=== PATIENT | female | born 1965 | race Caucasian/White ===

== ENCOUNTER → 2017-01-19 | Outpatient (CLI) | payer OTHER | END | disposition home or self-care (01) | LOC: C.PAPS 15:58 | PROVIDERS: ATTEND Physician Assistant | DX: Z12.4 Encounter for screening for malignant neoplasm of cervix (principal); R87.616 Satisfactory cervical smear but lacking transformation zone ==

== ENCOUNTER → 2017-01-20 | Outpatient (CLI) | payer OTHER ==
[2017-01-20 10:39] LABS: BLOOD UREA NITROGEN 14 mg/dl (7-18); BUN/CREATININE RATIO 10.6 (10-20); CALCIUM 9.5 mg/dl (8.5-10.1); CARBON DIOXIDE 19 mmol/L (21-32); CHLORIDE 106 mmol/L (98-107); GLUCOSE 94 mg/dl (70-99); POTASSIUM 3.8 mmol/L (3.5-5.1); SODIUM 142 mmol/L (136-145)
[2017-01-20 10:49] LABS: CHOLESTEROL 223 mg/dl (0-200); CHOLESTEROL/HDL RATIO 2.4; HDL CHOLESTEROL 93 mg/dl; LDL CHOLESTEROL CALCULATED 114 mg/dl; TRIGLYCERIDES 78 mg/dl (0-150); VERY LOW DENSITY LIPOPROT CALC 16 mg/dl
== END | disposition home or self-care (01) ==
LOC: C.LAB1850 07:11
PROVIDERS: ATTEND Nurse Practitioner Adult Health
DX: F41.9 Anxiety disorder, unspecified (principal); E03.9 Hypothyroidism, unspecified; Z82.3 Family history of stroke

== ENCOUNTER → 2017-02-01 | Outpatient (CLI) | payer OTHER ==
[2017-02-01 17:01] LABS: CREATININE 0.82 mg/dl (0.60-1.20)
== END | disposition home or self-care (01) ==
LOC: C.LAB1850 15:39
PROVIDERS: ATTEND Nurse Practitioner Adult Health
DX: R79.89 Other specified abnormal findings of blood chemistry (principal)

== ENCOUNTER → 2017-04-04 | Outpatient (CLI) | payer OTHER ==
--- NOTE | 2017-04-06 12:34 | MAMMOGRAPHY REPORT ---
BILATERAL DIGITAL SCREENING MAMMOGRAM TOMOSYNTHESIS WITH CAD: 04/04/2017 CLINICAL HISTORY: Routine screening. Patient has no complaints. TECHNIQUE: Breast tomosynthesis in addition to standard 2D mammography was performed. Current study was also evaluated with a Computer Aided Detection (CAD) system. COMPARISON: No prior exams were available for comparison. BREAST COMPOSITION: The tissue of both breasts is extremely dense, which lowers the sensitivity of m ammography. FINDINGS: No suspicious mass, architectural distortion or cluster of microcalcifications is seen. IMPRESSION: ACR BI-RADS CATEGORY 1: NEGATIVE There is no mammographic evidence of malignancy. Prior outside mammograms are currently being reques fabián and if obtained they will be reviewed, compared to the current exam to assess for any more subtle changes, and an addendum will be made to this report. Otherwise, a 1 year screening mammogram is re commended. The patient will receive written notification of the results. Approximately 10% of breast cancers are not detected with mammography. A negative mammographic report should not delay biopsy if a clinically suggestive mass is present. Jeri Schulz M.D. ay/:04/04/2017 16:45:03 Sample Book Maker: Amberly LIPSCOMB(Ghulam)(Roger), [facility] letter sent: Normal 1/2 BI-RADS Code: ACR BI-RADS Category 1: Negative
== END | disposition home or self-care (01) ==
LOC: C.MAMM 14:49
PROVIDERS: ATTEND Nurse Practitioner Adult Health
DX: Z12.31 Encounter for screening mammogram for malignant neoplasm of breast (principal)

== ENCOUNTER → 2017-10-31 | Outpatient (CLI) | payer OTHER ==
--- NOTE | 2017-10-31 16:37 | DIAGNOSTIC IMAGING REPORT ---
RIGHT FOREFOOT MRI HISTORY: Right FOOT PAIN TECHNIQUE: Multiplanar multisequence MR the right forefoot was performed without contrast. COMPARISON STUDY: None. FINDINGS: There is soft tissue edema along the plantar surface of the distal toe at the level the distal phalanx. Mild cartilage space narrowing and subchondral edema at the head of the first metatarsal consistent with mild degenerative change. Tiny subchondral cystic focus at the base of the distal phalanx also likely representing mild degenerative change. No fracture or dislocation. The Lisfranc joint is aligned. No erosions identified. Incidental is made of a bipartite medial sesamoid bone at the head of the first metatarsal. There may be minimal edema within the medial sesamoid bone. The visualized flexor and extensor tendons appear intact. IMPRESSION: 1. Nonspecific soft tissue edema along the plantar aspect of the distal first toe. No underlying bony abnormality. 2. Mild degenerative changes at the first MTP joint and interphalangeal joint of the first toe. 3. Bipartite medial sesamoid bone at the head of the first metatarsal which demonstrates mild marrow edema. This suggests a mild sesamoiditis. 4. No fracture or dislocation within the forefoot. Electronically signed by: Art Greene M.D. 10/31/2017 4:36 PM Dictated Date/Time: 10/31/2017 4:30 PM
== END | disposition home or self-care (01) ==
LOC: C.MRIBC 14:55
PROVIDERS: ATTEND Podiatrist Foot & Ankle Surgery
DX: M89.8X1 Other specified disorders of bone, shoulder (principal); L97.512 Non-pressure chronic ulcer of other part of right foot with fat layer exposed

== ENCOUNTER → 2017-12-12 | Outpatient (CLI) | payer OTHER ==
[2017-12-12 13:09] LABS: BASO % 1.5 %; BASO ABS # 0.08 K/uL (0-0.2); EOS % 1.5 %; EOS ABS # 0.08 K/uL (0-0.5); HEMATOCRIT 39.5 % (37-47); HEMOGLOBIN 13.1 g/dL (12.0-16.0); IG# 0.01 K/uL (0.00-0.02); LYMPH % 25.9 %; LYMPH ABS # 1.37 K/uL (1.2-3.4); MEAN CELL VOLUME 88.8 fL (80-100); MEAN CORPUSCULAR HEMOGLOBIN 29.4 pg (25-34); MEAN CORPUSCULAR HGB CONC 33.2 g/dl (32-36); MEAN PLATELET VOLUME 9.9 fL (7.4-10.4); MONO % 7.6 %; NEUT % 63.3 %; NEUT ABS # 3.34 K/uL (1.4-6.5); PLATELET COUNT 257 K/uL (130-400); RED CELL DISTRIBUTION WIDTH CV 14.1 % (11.5-14.5); RED CELL DISTRIBUTION WIDTH SD 46.1 fL (36.4-46.3); WHITE BLOOD COUNT 5.28 K/uL (4.8-10.8)
== END | disposition home or self-care (01) ==
LOC: C.LAB1850 11:43
PROVIDERS: ATTEND Orthopaedic Surgery
DX: M20.21 Hallux rigidus, right foot (principal); Z01.812 Encounter for preprocedural laboratory examination; Z01.818 Encounter for other preprocedural examination

== ENCOUNTER → 2018-02-07 | Outpatient (CLI) | payer OTHER | END | disposition home or self-care (01) | LOC: C.MAMM 09:02 | PROVIDERS: ATTEND Physician Assistant | DX: M85.80 Other specified disorders of bone density and structure, unspecified site (principal) ==

== ENCOUNTER 2021-03-26 06:11 | Inpatient (IN) ==
--- NOTE | 2021-03-06 14:51 | PAT Medication Instructions ---
Medication Instructions Date of Service March 06, 2021 Home Medications Medication Instructions Recorded sodium,potassium,mag sulfates 17.5 177 ml PO DAILY #354 ml 10/29/19 gram-3.13 gram-1.6 gram oral soln sertraline 100 mg tablet 150 mg PO QAM #135 tabs 01/16/20 levothyroxine 100 mcg tablet 100 mcg PO QAM #90 tab 06/25/20 calcium carb-vit D3-minerals 600 mg calcium-400 unit tablet 1 tab PO QAM sodium,potassium,mag sulfates 17.5 gram-3.13 gram-1.6 gram oral soln 177 ml PO DAILY sertraline 100 mg tablet 150 mg PO QAM levothyroxine 100 mcg tablet 100 mcg PO QAM ibuprofen 200 - 400 mg PO Q6H PRN ASK your surgeon for instructions ibuprofen 200 - 400 mg PO Q6H PRN DO NOT take the morning of surgery calcium carb-vit D3-minerals 600 mg calcium-400 unit tablet 1 tab PO QAM sodium,potassium,mag sulfates 17.5 gram-3.13 gram-1.6 gram oral soln 177 ml PO DAILY Take morning of surgery With a small sip of water, OTHERWISE NOTHING TO EAT OR DRINK AFTER MIDNIGHT: sertraline 100 mg tablet 150 mg PO QAM levothyroxine 100 mcg tablet 100 mcg PO QAM Other Notes If you have any questions please call us at [phone] or [phone] or [phone] or [phone]
--- NOTE | 2021-03-09 14:18 | Anesthesiology Consultation ---
Date of Service March 09, 2021 Assessment & Plan (1) Encounter for pre-operative examination: COVID screening: Per assessment on 03/09: Travel screen negative, no known COVID- 19 positive contacts or current COVID-19 related symptoms. Surgeon arranging preop COVID testing. Awaiting results. Chart Review Chart Review: Acceptable Risk for Surgery and Patient seen in Pre Admission Testing Teaching & Discussion Pre-Anesthesia Teaching/Discussion Notes: Instructed NPO after midnight before surgery,except medications with 15 cc of water. Medication instructions provided according to the PAT guidelines. History Surgery Operation Date: 03/26/21 07:45 Proposed Procedures p C5-C7 Anterior Cervical Discectomy Fusion Spinal Cord Monitoring - Gamal Chawla DO Height/Weight Height: 5 ft 5.5 in Weight: 57.5 kg Allergies Allergy/AdvReac Type Severity Reaction Status Date / Time No Known Allergies Allergy Verified 03/04/21 08:24 Medications Home Medications Medication Instructions Recorded Confirmed Last Taken calcium carb-vit D3-minerals 600 1 tab PO QAM tab 04/27/19 03/04/21 11/14/19 mg calcium-400 unit tablet sodium,potassium,mag sulfates 17.5 177 ml PO DAILY #354 ml 10/29/19 03/04/21 11/15/19 gram-3.13 gram-1.6 gram oral soln sertraline 100 mg tablet 150 mg PO QAM #135 tabs 01/16/20 03/04/21 Unknown levothyroxine 100 mcg tablet 100 mcg PO QAM #90 tab 06/25/20 03/04/21 Unknown ibuprofen 200 - 400 mg PO Q6H PRN 03/04/21 03/04/21 Unknown Past Medical History Medical History Anxiety Hypothyroidism (acquired) Insomnia Exercise / Class Metabolic Activity II 4-5 Yardwork/Stairs/Walk up hill Past Family History Family History Mother Coronary heart disease Emphysema lung Stroke Father Emphysema lung Sister Neoplasm of cervix Family history of reaction to anesthesia PONV Brother Family history of reaction to anesthesia PONV/SLOW TO WAKE UP Past Surgical History Surgical History delivery delivered X 2 History of colonoscopy History of toe surgery RIGHT S/P hernia repair S/P tubal ligation Past Anesthesia History No Hx of Anesthesia Complications Brother: PONV/"slow to wake" Sister: PONV History of PONV No Hx of PONV STOP BANG Total 1 Social History Smoking Status: Never smoker Do You Dip or Chew Tobacco: No Hx Alcohol Use: Yes Alcohol type: hard liquor alcohol intake frequency: a few times a week Hx Substance Use: No Review of Systems No snoring. Patient denies chest pain, shortness of breath, dyspnea on exertion, fever, chills, cough, wheezing, palpitations. Physical Exam Vital Signs VITALS BP 148/77 P 60 TEMP 98.8 SP02 98%RA RESP 16 PHYSICAL Full cervical extension range of motion but significant pain with extension. Full TMJ range of motion. TMD 3 finger breaths Mallampati Score 2 Dentition: intact, + crown Lungs: clear throughout to auscultation Cardiac: regular rate and rhythm, no murmurs noted Spine: normal Carotid arteries: negative bruit Extremities: no edema Lab Results Anesthesia Preop Results Results Anesthesia Widget: WBC 5.10 K/uL (4.8-10.8) 03/09/21 Hgb 13.3 g/dL (12.0-16.0) 03/09/21 Hct 39.1 % (37-47) 03/09/21 Plt 211 K/uL (130-400) 03/09/21 Na 139 mmol/L (136-145) 03/09/21 K 3.6 mmol/L (3.5-5.1) 03/09/21 Cl 106 mmol/L (98-107) 03/09/21 CO2 27 mmol/L (21-32) 03/09/21 BUN 18 mg/dl (7-18) 03/09/21 Creat 0.68 mg/dl (0.6-1.2) 03/09/21 Glucose Level 78 mg/dl (70-99) 03/09/21 PT 9.9 Seconds (9.0-12.0) 03/09/21 PTT 23.8 Seconds (21.0-31.0) 03/09/21 INR 1.0 (0.9-1.1) 03/09/21 Urine Color Yellow 03/09/21 Urine Appearance Clear (Clear) 03/09/21 Urine pH 7.0 (4.5-7.5) 03/09/21 Urine Specific [place] 1.009 (1.000-1.030) 03/09/21 Urine Protein Negative (Negative) 03/09/21 Urine Glucose (UA) Negative (Negative) 03/09/21 Urine Ketones Negative (Negative) 03/09/21 Urine Blood Negative (Negative) 03/09/21 Urine Nitrite Negative (Negative) 03/09/21 Urine Bilirubin Negative (Negative) 03/09/21 Urine Urobilinogen Negative (Negative) 03/09/21 Urine Leukocyte Esterase Negative (Negative) 03/09/21 Blood Type B Negative 03/09/21 Antibody Screen NEGATIVE 03/09/21 Testing Electrocardiogram Date: 03/09/21 Sinus bradycardia at 54 bpm. Minimal voltage criteria for LVH, may be normal variant. Chest X-Ray Date: 03/09/21 Findings: + NAD
[~2021-03-26 06:11] MED LIST: ACETAMINOPHEN 500 MG TAB PO SCH; CeleBREX 200 MG CAP PO SCH; GABAPENTIN 600 MG DOSE PO SCH; LR 15ML/HR IV SCH; ceFAZolin 1000MG 1,000 MG/7.5 ML SYR IV SCH
[2021-03-26] MEDS ORDERED: fentaNYL citrate 100 MCG/2 ML VIAL ONE (07:02)
[2021-03-26] MEDS ORDERED: MIDAZOLAM HCL 1 MG/ML 2ML VIAL ONE (07:02)
[2021-03-26] MEDS ORDERED: REMIFENTANIL HCL 1 MG VIAL ONE ×2 (07:05→08:20)
--- NOTE | 2021-03-26 07:27 | History & Physical Bridge Note ---
Date of Service March 26, 2021 History & Physical Bridge Note I have examined the patient, reviewed the History & Physical and in the interval since the performance of the History & Physical I have noted the following changes of clinical significance: no changes noted
--- NOTE | 2021-03-26 07:28 | History & Physical Report ---
Date of Service March 26, 2021 Assessment & Plan (1) Cervical stenosis of spinal canal: Admission and Anticipated Discharge Date Admission Date: C5-C7 anterior cervical discectomy and fusion History of Present Illness Chief Complaint: Neck and arm pain Primary Care Provider: Barb Moreno PA-C This is a 55-year-old female presents with chronic persistent neck and arm pain. After failing course of nonoperative care she is here for surgical intervention. Allergies Allergy/AdvReac Type Severity Reaction Status Date / Time No Known Allergies Allergy Verified 03/26/21 06:34 Home Medications Medication Instructions Recorded Confirmed Type calcium carb-vit D3-minerals 600 1 tab PO QAM tab 04/27/19 03/26/21 History mg calcium-400 unit tablet sodium,potassium,mag sulfates 17.5 177 ml PO DAILY #354 ml 10/29/19 03/26/21 Rx gram-3.13 gram-1.6 gram oral soln sertraline 100 mg tablet 150 mg PO QAM #135 tabs 01/16/20 03/26/21 Rx levothyroxine 100 mcg tablet 100 mcg PO QAM #90 tab 06/25/20 03/26/21 Rx ibuprofen 200 - 400 mg PO Q6H PRN 03/04/21 03/26/21 History Past Med/Surg History Medical History Anxiety Hypothyroidism (acquired) Insomnia Surgical History delivery delivered X 2 History of colonoscopy History of toe surgery RIGHT S/P hernia repair S/P tubal ligation Family History Mother Coronary heart disease Emphysema lung Stroke Father Emphysema lung Sister Neoplasm of cervix Family history of reaction to anesthesia PONV Brother Family history of reaction to anesthesia PONV/SLOW TO WAKE UP Social History (Updated 03/04/21 @ 08:46 by Hayde Lebron RN) Smoking Status: Never smoker Second Hand Exposure: Yes (PARENTS SMOKED); Do You Dip or Chew Tobacco: No; Hx Alcohol Use: Yes Alcohol type: hard liquor Hx Substance Use: No Preferred Language: Faroese Communication Ability: Effective Visual Impairment: No Limitations Hearing Ability: Normal Director Payment Required: No Beliefs That Will Affect Care: None marital status: Current Living Situation: Spouse and Family Current Living Situation Comment: spouse and 3 children current occupational status: employed current occupation: [employer] Other Information That Helps Us Care for You: No Feels Safe at Home: Yes Safety Concerns: Feels Safe At This Time Childhood Exposure to Second-Hand Smoke: No Dental Care, Regularly: Yes Physical Activity Frequency: 5-6 Times per Week Seatbelt Use: always Assistive Devices: Glasses Physical Exam Physical Exam: Patient is alert and oriented Heart regular in rhythm Lungs clear to auscultation Results & Data ([facility]) Vital Signs (Past 12 Hours) Vital Signs Temp Pulse Resp BP Pulse Ox 03/26/21 06:55 36.8 C 56 L 18 151/73 H 100
[2021-03-26] MEDS ORDERED: ePHEDrine sulfate 50 MG/ML AMP IV PRN (07:46)
[2021-03-26] MEDS ORDERED: ATROPINE SULFATE 0.1 MG/ML 10ML SYR IV PRN (07:46)
[2021-03-26] MEDS ORDERED: fentaNYL citrate 100 MCG/2 ML VIAL IV PRN (07:46)
[2021-03-26] MEDS ORDERED: ONDANSETRON INJ 2 MG/ML 2 ML VIAL IV PRN ×2 (07:46→11:04)
[2021-03-26] MEDS ORDERED: HYDROmorphone INJ 2 MG/ML SYR/VIAL IV PRN (07:46)
[2021-03-26] MEDS ORDERED: KETAMINE 50 MG/5 ML SYRINGE ONE (08:08)
[2021-03-26] MEDS ORDERED: FLOSEAL HEMOSTATIC MATRIX 10ML TOP ONE (08:54)
--- NOTE | 2021-03-26 09:09 | Operative Report ---
Post Operative Report Pre & Post Diagnosis Operation Date: 03/26/21 07:45 Pre-Op Diagnosis: Cervical spinal stenosis with radiculopathy Post-Op Diagnosis: Same I identified the patient and participated in the time-out.: Yes Procedure Operation Date: 03/26/21 07:45 Actual Procedures #1 anterior cervical discectomy with bilateral foraminotomies C5-C6 C6-C7. #2 anterior cervical arthrodesis C5-C6 C6-C7. #3 placement of 7 mm Spira filled with I factor at C5-C6 and 8 mm at C6-C7. #4 application 5 complete screws from C5-C7. Surgeon Gamal Chawla, Regulatory Affairs Analyst Eusebia Brasher Estimated Blood Loss 10 Findings Consistent with Post-Op Diagnosis Specimens None Indications This is a 55-year-old female who presents with above-mentioned diagnosis after failing since course of nonoperative care she is here for surgical invention. Description of Procedure Patient was met with identified informed consent obtained. Patient was then taken to the operative suite underwent a patient placed in supine position injectable head Garcia head automatic sawyer. All bony prominences well-padded eyes inspected to ensure no external pressure placed upon the. This point the anterior cervical spine was prepped and draped in a sterile fashion. The assistance of fluoroscopy verified the C6 vertebral body and a transverse incision was placed along the right anterior aspect of the cervical spinal lines region. Sharp dissection with the assistance of bipolar cautery performed down to and exposing the anterior cervical spine from C5 to see 7. Self-retaining retractors placed. Complete discectomy of C5-C6 was then performed out to the uncovertebral's bilaterally. Deputy distracting pins were utilized. Removed all posterior annular fibers longitudinal ligament and bilateral foraminotomies performed. Endplates were then burred to subcortically bone and a 7 mm spiral cage filled I factor tapped in position. Then proceeded C6-C7. Again several 10 retractors placed. A complete discectomy was then performed out to the uncovertebral's bilaterally. Deputy distracting pins again utilized. I removed all posterior annular fibers longitudinal ligament bilateral foraminotomies performed for complete decompression. Endplates were then burred to subcortically bone and 8 mm spiral cage filled I factor tapped in position. Distracting apparatus was removed all anterior osteophytes burred to a smooth cortical surface and a 5 complete screws applied with the assistance of fluoroscopy. 15 round ADIA drain inserted. The incision was then closed with 2 Vicryl in a fashion of 4 Monocryl for final skin closure. Steri-Strip sterile dressings placed. Patient waken taken PACU stable condition. Please note spinal cord monitoring visualized at the procedure no changes noted. Lastly Eusebia Brasher was present at the entire surgery involved the patient positioning complex portions of the surgery and fascial closure. I attest to the content of the Intraoperative Record and any orders documented therein. Any exceptions are noted below.
[2021-03-26] MEDS ORDERED: SUCCINYLCHOLINE CHLORIDE 20 MG/ML 10 ML VIAL IV ONE (09:31)
[2021-03-26] MEDS ORDERED: ONDANSETRON INJ 2 MG/ML 2 ML VIAL ONE (09:31)
[2021-03-26] MEDS ORDERED: ePHEDrine sulfate 50 MG/ML SYR ONE (09:31)
[2021-03-26] MEDS ORDERED: DEXAMETHASONE SOD INJ 4 MG/ML VIAL ONE (09:31)
[2021-03-26] MEDS ORDERED: ROCURONIUM BROMIDE 10 MG/ML 5 ML VIAL IV ONE (09:31)
[2021-03-26] MEDS ORDERED: PROPOFOL IV EMULSION 10 MG/ML 20 ML VIAL IV ONE (09:32)
[2021-03-26] MEDS ORDERED: LIDOCAINE 2% 2 ML VIAL/AMP(20MG/ML) INFIL ONE (09:32)
--- NOTE | 2021-03-26 09:54 | Fluoroscopy Report ---
FL cervical 2-3V CLINICAL HISTORY: C5-C7 ACDF COMPARISON STUDY: None FLUOROSCOPY TIME: 7 seconds. NUMBER OF FLUOROSCOPIC IMAGES: 3 FINDINGS: Intraoperative fluoroscopic images are presented for review. Placement of anterior screws, disc spacers and fixating plates within lower cervical region are seen. IMPRESSION: As above ACT 112: Negative or not required by law. The above report was generated using voice recognition software. It may contain grammatical, syntax o r spelling errors. Electronically signed by: Crystal Holland DO 03/26/2021 9:53 AM
--- NOTE | 2021-03-26 09:55 | Anesthesiology Progress Note ---
Date of Service March 26, 2021 Anesthesia Post Procedure Vital Signs Vital Signs: Temp Pulse Pulse Resp BP Pulse Ox 03/26/21 09:45 65 16 107/78 100 03/26/21 09:35 70 14 140/67 100 03/26/21 09:26 36.0 C L 75 17 152/69 H 96 03/26/21 06:55 36.8 C 56 L 18 151/73 H 100 Transfer of Care Handoff Completed per policy Notes Mental Status: alert / awake / arousable and participated in evaluation Patient Amnestic to Procedure: Yes Nausea / Vomiting: adequately controlled Pain: adequately controlled Airway Patency, RR, SpO2: stable & adequate BP & HR: stable & adequate Hydration State: stable & adequate Anesthetic Complications: no major complications apparent and Pt Satisfied with anesthetic care
[2021-03-26] MEDS ORDERED: ACETAMINOPHEN 1,000 MG/100 ML VIAL IV PRN (11:04)
[2021-03-26] MEDS ORDERED: DO NOT ADMINISTER PNEUMOCOCCAL VACCINE PRN (11:04)
[2021-03-26] MEDS ORDERED: diphenhydrAMINE Capsule 25 MG CAP PO PRN (11:04)
[2021-03-26] MEDS ORDERED: hydrOXYzine HCl 25 MG TAB PO PRN (11:04)
[2021-03-26] MEDS ORDERED: HYDROmorphone INJ 1 MG/ML SYRINGE IV PRN (11:04)
[2021-03-26] MEDS ORDERED: METOCLOPRAMIDE HCL INJ 5 MG/ML 2 ML VIAL IV PRN (11:04)
[2021-03-26] MEDS ORDERED: ONDANSETRON 4 MG OD TAB PO PRN (11:04)
[2021-03-26] MEDS ORDERED: ALUMINUM/MAGNESIUM SUSP 30 ML UDC PO PRN (11:04)
[2021-03-26] MEDS ORDERED: DO NOT ADMINISTER FLU VACCINE PRN (11:04)
[2021-03-26] MEDS ORDERED: HYDROmorphone INJ 0.5 MG/0.5 ML SYR IV PRN (11:04)
[2021-03-26] MEDS ORDERED: NALOXONE HCL 0.4 MG/1 ML VIAL/CARP IV PRN (11:04)
[2021-03-26] MEDS ORDERED: FAMOTIDINE 20 MG TAB PO PRN (11:04)
[2021-03-26] MEDS ORDERED: SOD PHOSPHATE/SOD BIPHOSPHATE ENEMA 132 ML BTL PR PRN (11:04)
[2021-03-26] MEDS ORDERED: MAGNESIUM HYDROXIDE SUSP 30 ML UDC PO PRN (11:04)
[2021-03-26] MEDS ORDERED: PROMETHAZINE HCL 12.5 MG in SODIUM CHLORIDE 0.9% 50 ML IV PRN (11:04)
[2021-03-26] MEDS ORDERED: oxyCODONE HCL IR 5 MG TAB (IMMEDIATE RELEASE) PO PRN (11:04)
[2021-03-26] MEDS ORDERED: LORazepam 0.5 MG TAB PO PRN (11:04)
[2021-03-26] MEDS ORDERED: dexAMETHasone 8 MG in SYRINGE 0 ML IV PRN (11:04)
[2021-03-26] MEDS ORDERED: LORazepam 0.5 MG/1 ML VIAL IV PRN (11:04)
[2021-03-26] MEDS ORDERED: RACEPINEPHRINE 2.25% NEBU SOLN 0.5 ML VIAL INH PRN (11:04)
[2021-03-26] MEDS: LACTATED RINGER'S 1,000 ML IV SCH ×2 (13:27→19:15)
[2021-03-26] MEDS ORDERED: COUGH DROP (SUGAR FREE) LOZ 24 LOZ/1 BOX BUCCAL PRN (13:29)
[2021-03-26] MEDS: traMADol HCL 50 MG TABLET PO PRN ×3 (13:38→23:29)
[2021-03-26] MEDS: ceFAZolin 1000MG 1,000 MG/7.5 ML SYR IV SCH ×2 (15:59→23:36)
[2021-03-26] MEDS: ACETAMINOPHEN 500 MG TAB PO PRN (16:02)
[2021-03-26] MEDS ORDERED: DOCUSATE SODIUM/SENNA 50/8.6MG TAB PO SCH (21:00)
[2021-03-27] MEDS ORDERED: POLYETHYLENE (MIRALAX) 17 GM PACK PO SCH (06:00)
[2021-03-27] MEDS ORDERED: LEVOTHYROXINE SODIUM 100 MCG TABLET PO SCH (06:30)
[2021-03-27] MEDS: ACETAMINOPHEN 500 MG TAB PO PRN (07:06)
[2021-03-27] MEDS: traMADol HCL 50 MG TABLET PO PRN (08:07)
[2021-03-27] MEDS ORDERED: SERTRALINE HCL 50 MG TABLET PO SCH (09:00)
[2021-03-27] MEDS ORDERED: CALCIUM 600MG + VIT D 400 IU TAB PO SCH (09:00)
[2021-03-27] MEDS ORDERED: dexAMETHasone 6 MG in SYRINGE 0 ML IV SCH (09:00)
--- NOTE | 2021-03-27 09:56 | Discharge Summary ---
Date of Service March 27, 2021 Admission HPI Per Admitting Provider This is a 55-year-old female presents with chronic persistent neck and arm pain. After failing course of nonoperative care she is here for surgical intervention. Principal Diagnosis Cervical radiculopathy Discharge Data Allergies Allergy/AdvReac Type Severity Reaction Status Date / Time buspirone Allergy Unknown Verified 03/26/21 11:18 escitalopram [From Lexapro] Allergy Unknown Verified 03/26/21 11:18 fluoxetine [From Prozac] Allergy Unknown Verified 03/26/21 11:18 paroxetine [From Paxil] Allergy Unknown Verified 03/26/21 11:18 Procedures Performed Operation Date: 03/26/21 07:45 Actual Procedures p C5-C7 Anterior Cervical Discectomy Fusion, Spinal Cord Monitoring(Not Applicable) - Gamal Chawla DO Ordered Studies 03/26/21 07:00 FL cervical 2-3V Routine Hospital Course (1) Cervical stenosis of spinal canal: Patient went anterior cervical discectomy and fusion tolerates well 2nd orthopedic for postop labor postop and when she was swallowing well no hoarseness. ADIA drain decreasing probably. Excellent strength testing. Rosanna aguiar discharged home. Discharge orders instructions from the chart for further review. Total Time Total Time Spent Total Time Spent (In Minutes): 20 minutes Discharge Plan Discharge Items Patient Disposition: Home - Self-Care Reason For Visit: Spinal Stenosis, Cervical Region Discharge Diagnosis: Cervical radiculopathy Activity: As commented below Non-emergency contact: Primary Care Provider Call non-emergency contact if: you have any medication questions Follow-up/Referrals: Barb Moreno PA-C [Primary Care Provider] - Diet: Regular Addtl Attending Provider Instructions: ACTIVITY RECOMMENDATIONS: SELF CARE INSTRUCTIONS AFTER CERVICAL FUSIONS 1. No smoking. Smoking drastically decreases the chance of a solid fusion. 2. No bending, lifting more than 5 pounds, or twisting (roll like a log when turning in bed). 3. You may shower 3 days after surgery. Thoroughly dry wound. Do not soak in the tub. 4. Cervical collar: Must be worn at all times including sleeping. You may remove the brace only to bath, eat and if you are sitting in a recliner. 5. Please walk as much as you can for exercise. Gradually increase the distance that you walk as your endurance increases. SPECIAL CARE INSTRUCTIONS: VERY IMPORTANT TO READ AND REVIEW A. Do not take any anti-inflammatory medications (i.e. Indocin, Advil, Aspirin, Naprosyn, Aleve, Motrin, etc.) as these may inhibit the chance of a solid fusion. Tylenol is okay to take. B. Your surgical incision has been closed with a cosmetic suture under the skin that will dissolve in about 6 weeks. In 14 days, you can use a pair of clean scissors and cut the suture that is left outside of the skin at the ends of your incision. C. Complications are uncommon, but please contact us if you have any signs or symptoms of: 1. wound infection (fever higher than 102.5 degrees F, redness, separation of wound, drainage, or increasing pain from the incision) 2. blood clots in legs (pain, swelling, redness and warmth in legs) 3. urinary tract infection (fever higher than 102.5 degrees, burning upon urination or increased frequency of urination) 4. nerve problems (inability to walk on your toes or heels, numbness, loss of bowel or bladder control) 5. any other symptoms that concern you. D. Please call the office at if you have any concerns or questions about your operation or recovery. MANAGING PAIN AFTER SPINAL SURGERY 1. Narcotic medication is intended for short-term use and will be provided for surgical pain. Surgical pain usually lasts for a period of 4-6 weeks. Narcotic medication includes Percocet, Vicodin, Darvocet, Tylenol #3 or Lortab. 2. Longer-term pain is more appropriately treated with non-narcotic medication such as Tylenol ES. 3. Muscle spasm is not appropriately treated with narcotics. Muscle relaxers such as Soma, Flexeril or Skelaxin can be used along with Tylenol ES. 4. Remember that we all live with some "aches and pains". This is not unusual or uncommon after an injury or as we get older. 5. We will provide appropriate medication within the normal guidelines of their prescribed use. We will also be very cautious and aware of potential abuse and extended duration of patients' medication needs. 6. Please allow 2-3 days to process refills. Prescriptions will not be mailed but must be picked up at the office. FOLLOW UP VISIT: Keep your scheduled follow-up appointment. Any questions, please call the office at . Pending Studies at Discharge: No Stand-Alone Forms: [facility], Smoking Cessation Medications and DC Order Prescriptions: New oxycodone 5 mg tablet 5 mg PO Q6H PRN (Reason: pain, severe) Qty: 20 RF: 0 tramadol 50 mg tablet 50 mg PO Q6H PRN (Reason: pain, moderate) Qty: 20 RF: 0 Continued Suprep Bowel Prep Kit 17.5-3.13-1.6 gram recon soln 177 ml PO DAILY Qty: 354 RF: 0 sertraline 100 mg tablet 150 mg PO QAM Qty: 135 RF: 1 levothyroxine [Synthroid] 100 mcg tablet 100 mcg PO QAM Qty: 90 RF: 0 calcium carbonate-vit D3-min [Calcium 600 + Minerals] 600 mg calcium- 400 unit tablet 1 tab PO QAM RF: 0 ibuprofen 200 mg Capsule 200 - 400 mg PO Q6H PRN (Reason: Pain) RF: 0 Discharge Orders: Discharge Order (Routine); Ordered 03/27/21 Ordered By: Gamal Chawla Admission Data Admit Date/Time: 03/26/21 09:25 Attending Provider: Gamal Chawla Admit Provider: Gamal Chawla Primary Care Provider: Barb Moreno
[2021-03-27 10:13] VITALS: BP 145/78; PULSE 60; TEMP 97.7; O2SAT 95
[2021-03-28] MEDS ORDERED: bisacodyL 10 MG SUPP PR PRN (09:11)
== END 2021-03-27 11:46 | disposition home or self-care (01) | DRG 473 ==
LOC: ASU 06:11 → 3E 09:25